=== PATIENT | female | born 1985 | race Caucasian/White ===

== ENCOUNTER → 2016-07-27 | Outpatient (CLI) | payer OTHER ==
--- NOTE | 2016-07-28 02:22 | REP ---
Clinical: Back pain. Disc disease. Technique: AP, lateral views of the lumbar spine . Findings: Alignment and lordosis is maintained. The vertebral bodies including spinous processes are intact and normal. There is no evidence for acute fracture / compression injury or subluxation. No significant degenerative change is noted. Impression: Normal lumbosacral spine radiograph series. Signed by Burt Hager MD 07/28/2016 02:13 A
--- NOTE | 2016-07-28 02:25 | REP ---
Clinical: Neck pain. Technique: AP and lateral views of the cervical spine. Findings: Alignment and lordosis maintained and normal. Vertebral bodies and disc spaces appear normal for age. No acute fracture / compression injury or subluxation. Prevertebral soft tissues and spinous processes are normal. Impression: Age-appropriate cervical spine radiographs. Signed by Burt Hager MD 07/28/2016 02:16 A
--- NOTE | 2016-07-28 02:33 | REP ---
Clinical: thoracic pain. Technique: AP, lateral views. Findings: Alignment and kyphosis is maintained. Vertebral bodies intact. No acute fracture / compression injury or subluxation. No degenerative changes. Paravertebral soft tissues are normal. Impression: Normal thoracic spine series. Signed by Burt Hager MD 07/28/2016 02:25 A
== END ==
LOC: M RAD 11:14
PROVIDERS: ATTEND Chiropractor
DX: M51.37 Other intervertebral disc degeneration, lumbosacral region (principal)

== ENCOUNTER → 2017-08-30 | Outpatient (REF) | payer OTHER | LOC: M LAB REF 09:01 | DX: Z12.4 Encounter for screening for malignant neoplasm of cervix (principal) ==

== ENCOUNTER 2017-11-04 12:50 | Emergency (ER) | payer OTHER ==
[2017-11-04 13:24] LABS: BASO # 0.1 10^3/uL (0.0-0.2); BASO % 0.5 % (0.0-1.0); EOS # 0.1 10^3/uL (0.0-0.50); EOS % 1.4 % (0.0-3.0); HEMOGLOBIN 13.4 g/dl (12.0-15.5); IMMATURE GRANULOCYTE % 0.3 % (0-3.0); LYMPH # 2.1 10^3/uL (1.5-4.5); LYMPH % 21.7 % (24.0-44.0); MEAN CORPUSCULAR HEMOGLOBIN 31.2 pg (27.0-33.0); MEAN CORPUSCULAR HGB CONC 34.4 g/dl (32.0-36.5); MEAN CORPUSCULAR VOLUME 90.7 fl (80.0-96.0); MONO # 0.7 10^3/uL (0.0-0.8); MONO % 7.3 % (0.0-5.0); NEUTROPHILS # 6.6 10^3/uL (1.8-7.7); NEUTROPHILS % 68.8 % (36.0-66.0); PLATELET COUNT, AUTOMATED 258 10^3/uL (150-450); RED CELL DISTRIBUTION WIDTH 11.6 % (11.5-14.5); WHITE BLOOD COUNT 9.5 10^3/uL (4.0-10.0)
[2017-11-04 13:27] LABS: KETONE, URINE AUTO RFX NEGATIVE (NEGATIVE); LEUKOCYTE ESTERASE UR AUTO RFX NEGATIVE (NEGATIVE); NITRITE, URINE AUTO RFX NEGATIVE (NEGATIVE); RBC, URINE AUTO RFX 1 /HPF (0-3); SPECIFIC GRAVITY UR AUTO RFX 1.003 (1.002-1.035); SQUAM EPITHELIAL CELL UR AURFX 1 /HPF (0-6); WBC, URINE AUTO RFX 0 /HPF (0-3)
[2017-11-04 14:15] LABS: ANION GAP 6 MEQ/L (8-16); BLOOD UREA NITROGEN 10 MG/DL (7-18); CALCIUM LEVEL 8.6 MG/DL (8.5-10.1); CARBON DIOXIDE LEVEL 27 MEQ/L (21-32); CHLORIDE LEVEL 105 MEQ/L (98-107); CREATININE FOR GFR 0.68 MG/DL (0.55-1.30); GLOMERULAR FILTRATION RATE > 60.0 (>60); GLUCOSE, FASTING 96 MG/DL (70-100); HCG, SERUM QUANTITATIVE 301 MIU/ML; POTASSIUM SERUM 3.7 MEQ/L (3.5-5.1); SODIUM LEVEL 138 MEQ/L (136-145)
== END 2017-11-04 16:21 | disposition home or self-care (01) ==
LOC: M ED 12:50
DX: O99.89 Other specified diseases and conditions complicating pregnancy, childbirth and the puerperium (principal); N93.9 Abnormal uterine and vaginal bleeding, unspecified; R10.2 Pelvic and perineal pain; R93.8 Abnormal findings on diagnostic imaging of other specified body structures; Z3A.01 Less than 8 weeks gestation of pregnancy
CPT/HCPCS: 76801

== ENCOUNTER → 2017-11-05 | Outpatient (CLI) | payer OTHER ==
[2017-11-05 14:23] LABS: HCG, SERUM QUANTITATIVE 119 MIU/ML
== END ==
LOC: M LAB 13:14
DX: O99.89 Other specified diseases and conditions complicating pregnancy, childbirth and the puerperium (principal); N93.9 Abnormal uterine and vaginal bleeding, unspecified; Z3A.00 Weeks of gestation of pregnancy not specified
CPT/HCPCS: 84702

== ENCOUNTER → 2017-11-12 | Outpatient (CLI) | payer OTHER ==
[2017-11-12 12:37] LABS: HCG, SERUM QUANTITATIVE 2 MIU/ML
== END ==
LOC: M LAB 11:25
DX: O20.0 Threatened abortion (principal); Z3A.00 Weeks of gestation of pregnancy not specified
CPT/HCPCS: 84702

== ENCOUNTER → 2018-04-30 | Outpatient (CLI) | payer OTHER ==
[2018-04-30 11:42] LABS: FREE T4 0.91 NG/DL (0.76-1.46)
[2018-05-02 09:49] LABS: PROGESTERONE 13.1 NG/ML
[2018-05-02 09:49] LABS: FOLLICLE STIMULATING HORMONE 3.6 mIU/mL; PROLACTIN 6.9 NG/ML
== END ==
LOC: M LAB 10:51
DX: N93.8 Other specified abnormal uterine and vaginal bleeding (principal)
CPT/HCPCS: 83001

== ENCOUNTER → 2018-05-07 | Outpatient (CLI) | payer OTHER ==
[2018-05-07 11:09] LABS: HCG, SERUM QUANTITATIVE 79 MIU/ML
== END ==
LOC: M LAB 09:49
DX: N91.2 Amenorrhea, unspecified (principal)
CPT/HCPCS: 84702

== ENCOUNTER → 2018-05-09 | Outpatient (CLI) | payer OTHER ==
[2018-05-09 08:35] LABS: HCG, SERUM QUANTITATIVE 184 MIU/ML
== END ==
LOC: M LAB 07:29
DX: N91.2 Amenorrhea, unspecified (principal)
CPT/HCPCS: 84702

== ENCOUNTER → 2018-06-10 | Outpatient (CLI) | payer OTHER ==
[2018-06-10 18:05] LABS: BASO % 0.3 % (0.0-1.0); EOS # 0.1 10^3/uL (0.0-0.50); EOS % 0.8 % (0.0-3.0); HEMATOCRIT 39.9 % (36.0-47.0); HEMOGLOBIN 13.8 g/dl (12.0-15.5); IMMATURE GRANULOCYTE % 0.3 % (0-3.0); LYMPH # 1.8 10^3/uL (1.5-4.5); LYMPH % 16.9 % (24.0-44.0); MEAN CORPUSCULAR HEMOGLOBIN 30.9 pg (27.0-33.0); MEAN CORPUSCULAR HGB CONC 34.6 g/dl (32.0-36.5); MEAN CORPUSCULAR VOLUME 89.5 fl (80.0-96.0); MONO # 0.7 10^3/uL (0.0-0.8); MONO % 6.3 % (0.0-5.0); NEUTROPHILS % 75.4 % (36.0-66.0); PLATELET COUNT, AUTOMATED 235 10^3/uL (150-450); RED BLOOD COUNT 4.46 10^6/uL (4.00-5.40); RED CELL DISTRIBUTION WIDTH 11.6 % (11.5-14.5); WHITE BLOOD COUNT 10.6 10^3/uL (4.0-10.0)
[2018-06-10 19:43] LABS: CHLAMYDIA DNA AMPLIFICATION NEGATIVE (NEGATIVE); GC DNA AMPLIFICATION NEGATIVE (NEGATIVE)
[2018-06-13 11:16] LABS: HBsAg Prenatal NEGATIVE (NEGATIVE); HIV 1&2 SCREEN CENTAUR NEGATIVE (NEGATIVE); RUBELLA IgG QUALITATIVE IMMUNE (IMMUNE)
[2018-06-13 11:16] LABS: HEPATITIS C VIRUS ABY INDEX 0.1 INDEX (<0.8)
== END ==
LOC: M SMT 14:11
DX: Z36.89 Encounter for other specified antenatal screening (principal)
CPT/HCPCS: 86762

== ENCOUNTER → 2018-08-19 | Outpatient (CLI) | payer OTHER ==
[~2018-08-19] MED LIST: PRENTAB31 PO
--- NOTE | 2018-08-19 14:28 | REP ---
Obstetric ultrasound for anatomy: There is a single intrauterine gestation in a breech presentation. There is motion and cardiac activity. The heart rate is 160 beats per minute. The placenta is anterior / right lateral without previa or abruptio. The placenta is grade zero maturity. The amniotic fluid volume subjectively is normal. The cervix measures 5.3 cm length. Gestational age by the ultrasound today is 19 weeks 1 day with/NERY 01/12/2019. There is no gestational age by the first ultrasound or LMP. weight is 276 grams (0 pounds, 9 ounces). This is the 46 percentile for 19 weeks 1 day. The following anatomic structures are identified and are unremarkable: Intracranial lateral ventricles, choroid plexus, cerebellum, lungs, diaphragm, stomach, cord insertion, three-vessel cord, bladder, and upper lower extremities. Suboptimally demonstrated because of position are: face, upper lip, facial profile, four-chamber heart, cardiac right and left ventricular outflow tracts and kidneys. A followup study dedicated to these structures might be considered. Electronically Signed by Christian Tejeda MD 08/19/2018 02:19 P
== END ==
LOC: M RAD 12:41
PROVIDERS: ATTEND Advanced Practice Midwife
DX: O32.1XX0 Maternal care for breech presentation, not applicable or unspecified (principal); Z36.89 Encounter for other specified antenatal screening; Z3A.19 19 weeks gestation of pregnancy

== ENCOUNTER → 2018-09-09 | Outpatient (CLI) | payer OTHER ==
--- NOTE | 2018-09-09 12:21 | REP ---
OB ULTRASOUND: Real-time sonographic evaluation of the gravid uterus performed. There is a single intrauterine gestation. Estimated gestational age is 22 weeks 1 day, EDC 01/12/2019. Today's measurements indicate appropriate growth. Biometry and Growth: BPD 52 mm = 21 weeks 6 days, 45th percentile HC 193 mm = 21 weeks 3 days, 30th percentile AC 178 mm = 22 weeks 5 days, 62nd percentile FL 37 mm = 21 weeks 4 days, 36th percentile HC/AC ratio 1.08 within normal range. Estimated weight 478 grams, 44th percentile. SEEN/GROSSLY UNREMARKABLE Lateral ventricles Yes Posterior fossa Yes Upper lip Yes Four-chamber heart Yes LVOT Yes RVOT Yes Stomach Yes Cord insertion Yes Three vessel cord Yes Kidneys Yes Bladder Yes Spine Yes Cervical length: Closed and measures 6 cm in length. heart rate: 135 beats per minute. position: Breech. Placenta: Anterior and grade 0 with no previa or abruption. Amniotic fluid: Within normal limits. Electronically Signed by Christian Trinh MD 09/12/2018 11:07 A
== END ==
LOC: M RAD 09:38
PROVIDERS: ATTEND Advanced Practice Midwife
DX: Z34.82 Encounter for supervision of other normal pregnancy, second trimester (principal); Z3A.22 22 weeks gestation of pregnancy

== ENCOUNTER → 2018-10-28 | Outpatient (CLI) | payer OTHER ==
[2018-10-28 13:59] LABS: HEMATOCRIT 32.4 % (36.0-47.0); HEMOGLOBIN 10.8 g/dl (12.0-15.5); MEAN CORPUSCULAR HEMOGLOBIN 30.6 pg (27.0-33.0); MEAN CORPUSCULAR HGB CONC 33.3 g/dl (32.0-36.5); MEAN CORPUSCULAR VOLUME 91.8 fl (80.0-96.0); PLATELET COUNT, AUTOMATED 188 10^3/uL (150-450); RED BLOOD COUNT 3.53 10^6/uL (4.00-5.40); WHITE BLOOD COUNT 9.3 10^3/uL (4.0-10.0)
== END ==
LOC: M SMT 09:07
PROVIDERS: ATTEND Advanced Practice Midwife
DX: O26.892 Other specified pregnancy related conditions, second trimester (principal); Z3A.00 Weeks of gestation of pregnancy not specified

== ENCOUNTER → 2018-12-22 | Outpatient (REF) | payer OTHER | LOC: M LAB REF 17:02 | PROVIDERS: ATTEND Advanced Practice Midwife | DX: Z34.83 Encounter for supervision of other normal pregnancy, third trimester (principal); Z3A.00 Weeks of gestation of pregnancy not specified ==

== ENCOUNTER 2019-01-20 19:25 | Inpatient (IN) | payer OTHER ==
[~2019-01-20] VITALS: Ht 170.2 cm; Wt 104.7 kg
[2019-01-20] VITALS (11 sets, daily range): BP systolic 133–183; BP diastolic 63–84
[2019-01-20] MEDS ORDERED: LACTATED RINGER'S 1000 ML IV STA (19:47)
[2019-01-20] MEDS ORDERED: LR 1,000 ML IV SCH (20:15)
[2019-01-20 20:16] LABS: HEMATOCRIT 35.1 % (36.0-47.0); HEMOGLOBIN 11.8 g/dl (12.0-15.5); MEAN CORPUSCULAR HEMOGLOBIN 29.6 pg (27.0-33.0); MEAN CORPUSCULAR HGB CONC 33.6 g/dl (32.0-36.5); MEAN CORPUSCULAR VOLUME 88.2 fl (80.0-96.0); PLATELET COUNT, AUTOMATED 241 10^3/uL (150-450); RED BLOOD COUNT 3.98 10^6/uL (4.00-5.40)
[2019-01-20] MEDS ORDERED: FENTANYL 2MCG/ML ROPIVACAINE 0.2% IN 0.9% NACL 100ML IVBAG As Ordered ONE (20:51)
--- NOTE | 2019-01-20 21:58 | HPEPDOC ---
Obstetrical History & Physical General Date of Admission Jan 20, 2019 at 19:52 History of Present Illness Chief Complaint: Contractions, term Information Provided By: Patient Age: 33 : 3 Term: 1 Pre-term: 0 Abortions: 1 Livin Care Care: Good Care Dating Final EDC: Jan 16, 2019 Final EDC by: LMP EGA at Admission: 40 (+4) Antepartum Course Height (inches): 67 Pre- weight (lbs.): 190 Admission Weight (lbs.): 230 Past Medical History Past Obstetrical History : Past Obstetrical History: Primgravida (2005) Type of Delivery: Spontaneous Vaginal Del. Sex of Infant: Male (7#14) Complications: No [employer] History: Spontaneous Past Medical History Medical History Noncontributory Surgical History: Other (knee) Family History Significant Family History: Cancer (colon, liver, breast), Diabetes Social History Marital Status: Single Family situation: Spouse/partner home Psychosocial History: No pertinent psych hx * Smoker: former Smoker Alcohol: Denies Drugs: denies Abuse Violence Screening Have you been sexually assault: No Imunizations Tdap status: current Allergies Coded Allergies: Animal Dander (Verified Allergy, Unknown, STUFFY/DRAINAGE, 06/30/06) Medications Scheduled Multivitamins/ ( Forte) 1 Tab Tab, 1 TAB PO DAILY Physical Examination Physical Examination GENERAL: Alert and oriented times three. BREAST: . ABDOMEN: Gravid and non-tender to touch. FETUS: Is vertex (VTX) by sterile vaginal examination (SVE), fetus is vertex (VTX) by Roland. HEART RATE: Regular rate and rhythm. LUNGS: Clear to auscultation (CTA). EXTREMITIES: No edema. No clonus. Deep tendon reflexes (DTRs) + 2. Laboratory Data 24H LABS Laboratory Tests 2 01/20/19 20:09: Nucleated Red Blood Cells % (auto) 0.0 01/20/19 21:04: Serology Scanned Report Hepatitis B Testing CBC/BMP Laboratory Tests 01/20/19 20:09 Red Blood Count 3.98 L, Mean Corpuscular Volume 88.2, Mean Corpuscular Hemoglobin 29.6, Mean Corpuscular Hemoglobin Concent 33.6, Red Cell Distribution Width 13.0 Pertinent Laboratoy Data Blood Type: A+ RBC Antibody Screen: Negative HIV: Negative Hepatitis B: Negative Hepatitis C: Negative Rapid Plasma Reagin: Nonreactive Rubella: Immune Chlamydia/Gonorrhea: Negative Group B Streptococcus: Negative Quad Screen Test: Declined Glucose Tolerance Test: 117 Anatomy Ultrasound Ultrasound Date: Aug 19, 2018 Placenta Location: Anterior Normal Anatomy: Yes Placenta Previa: No Estimated Weight (grams): 276 Other Ultrasounds 06/10/18 dating 9w0d 09/09/18 remainder anatomy complete and normal Steroid Therapy Steroid Therapy: No Vaginal Examination Dilation: 4 cm Effacement: 90% Station: -3 Cervical Consistency: Soft Cervical Position: Posterior Presentation: Cephalic presentation Assessment Heart Rate (FHR): 140 Variability: Moderate Accelerations: Positive Decelerations: None Tocometer Contractions: Yes Frequency: every 2-5 min. Duration: greater than 60 seconds Strength: palpated as moderate Assessment/Plan Assessment Zaida is a 33-year-old (G)3 para (P)1-0-1-1 at 40+4 weeks by 9-week ultrasound. Presents to Labor and Delivery (L&D) with reports of contractions all day, stronger in the last few hours. Denies LOF or bleeding. Fetus is active. Plan Admit and orient. 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 Diet: Clear liquids. Group B Streptococcus (GBS) negative. Labs and intravenous (IV) per unit protocol. Counseled on Pitocin and induction of labor (IOL). Lactated Ringers (LR): Bolus 500 mL, then at 125 mL/hr. Plans an epidural Anticipate normal spontaneous delivery (). C-S as appropriate. Valentine Duncan CNM Jan 20, 2019 21:58
[2019-01-20] MEDS ORDERED: EPIDURAL/PCA KEYS XX PRN (22:45)
[2019-01-20] MEDS ORDERED: ONDANSETRON 4MG/2ML VIAL (J2405) IV PRN (22:45)
[2019-01-20] MEDS ORDERED: ePHEDrine SULFATE 25 MG/5 ML(5MG/ML) SYRINGE IV PRN (22:45)
[2019-01-20] MEDS ORDERED: REFRIGERATOR IV KEYS XX PRN (22:45)
[2019-01-20] MEDS ORDERED: diphenhydrAMINE INJ 50MG/ML VIAL (J1200) IV PRN (22:45)
[2019-01-20] MEDS ORDERED: NALOXONE INJ 0.4 MG/1 ML VIAL (J2310) IV PRN (22:45)
[2019-01-20] MEDS ORDERED: FENTANYL/ROPIVACAINE/NACL BAG 100 ML EPIDURAL SCH (22:45)
[2019-01-20] MEDS ORDERED: LACTATED RINGER'S 1000 ML IV PRN (22:45)
[2019-01-20] MEDS ORDERED: EPIDURAL COMMENT XX SCH (22:45)
[2019-01-20] MEDS ORDERED: OXYTOCIN 30 UNITS IN 0.9% NaCl 500ML IV BAG (J2590) As Ordered ONE (22:46)
[2019-01-20] MEDS ORDERED: OXYTOCIN DRIP 30 UNITS in IV 1 EA IV SCH (23:40)
[2019-01-20] MEDS ORDERED: RHOGAM 300 MCG (1500 IU) INJ (J2790) IM SCH (23:45)
[2019-01-20] MEDS ORDERED: MOM 30ML SUSPENSION UDC PO PRN (23:45)
[2019-01-20] MEDS ORDERED: MEASLES,MUMPS,RUBELLA VACCINE INJ (MMR-II) (90707) SC SCH (23:45)
[2019-01-20] MEDS ORDERED: METHYLERGONOVINE MALEATE 0.2 MG TAB PO PRN (23:45)
[2019-01-20] MEDS ORDERED: ANUSOL HC CREAM 30GM TOP PRN (23:45)
[2019-01-20] MEDS ORDERED: ACETAMINOPHEN TAB 650MG DOSE (2X325MG) PO PRN (23:45)
[2019-01-20] MEDS ORDERED: IBUPROFEN 800 MG TAB PO PRN (23:45)
[2019-01-20] MEDS ORDERED: DOCUSATE SODIUM 100 MG CAP PO PRN (23:45)
[2019-01-20] MEDS ORDERED: IBUPROFEN 600 MG TAB PO PRN (23:45)
[2019-01-20] MEDS ORDERED: DIBUCAINE 1% OINTMENT 30GM TOP PRN (23:45)
--- NOTE | 2019-01-20 23:56 | DNPDOC ---
[facility] Delivery Note Delivery Note DATE OF DELIVERY: January 20, 2019 PREDELIVERY DIAGNOSIS: 40+4/7 weeks' gestation and labor. POST DELIVERY DIAGNOSIS: Delivered. PROCEDURE: Spontaneous vaginal delivery. PROVIDER: Valentine Duncan CNM ANESTHESIA: Epidural. ESTIMATED BLOOD LOSS: 100 mL. FINDINGS: 8 pound 10 ounce, 3910gm male , Score 8/9, no nuchal cord. Compound presentation with Left anterior arm DELIVERY SUMMARY: Patient is a 33-year-old 3 now para 2-0-1-2 who was admitted to labor and delivery for active labor. Spontaneously ruptured membranes 2019, thin meconium staining. Utilized an epidural for labor coping. Fully dilated 2256. Viable male delivered LES, compound with Left anterior arm @ 2319. Spontaneous respirations with stimulation, transitioned on maternal abdomen. Cord doubly clamped and cut by FOB under my direction once pulsations ceased. Apgars 8/9. Placenta malagon, intact with 3v cord @ 2323. Fundus firmed with massage and IV pitocin bolus. EBL 100ml. 1st degree vaginal laceration repaired with 3-0 vicryl rapide. Sponge, sharp and instrument count correct. Parents are naming their son Mina. Valentine Duncan CNM Jan 20, 2019 23:56
[2019-01-21 02:10] VITALS: BP 122/74
[2019-01-21] MEDS: ACETAMINOPHEN 500 MG TAB PO PRN ×2 (02:20→17:28)
[2019-01-21 06:30] VITALS: BP 121/64
--- NOTE | 2019-01-21 07:10 | IPNPDOC ---
Text Note Date of Service The patient was seen on 01/21/19. NOTE Feels well. Adequate pain management. on demand. Voiding VSS, afebrile and normotensive Breasts soft, nipples intact Fundus firm, down 2 FB Lochia rubra light without odor Perineum well approximated without edema PP #1 Routine care. Anticipate D/C in am VS,Fishbone, I+O VS, Fishbone, I+O Laboratory Tests 01/20/19 20:09 Red Blood Count 3.98 L, Mean Corpuscular Volume 88.2, Mean Corpuscular Hemoglobin 29.6, Mean Corpuscular Hemoglobin Concent 33.6, Red Cell Distribution Width 13.0 Vital Signs Date Time Temp Pulse Resp B/P (MAP) Pulse Ox O2 Delivery O2 Flow Rate FiO2 01/21/19 06:30 99.4 71 18 121/64 (83) I&O- Last 24 Hours up to 6 AM 01/21/19 06:00 Intake Total 1800 ml Output Total 1350 ml Balance 450 ml Valentine Duncan CNM Jan 21, 2019 07:10
[2019-01-21] MEDS: PRENATAL VITAMINS CHEWABLE TABLET PO SCH (16:07)
[2019-01-21 18:05] VITALS: BP 132/77
[2019-01-22 06:19] VITALS: BP 142/86
[2019-01-22] MEDS ORDERED: ACET-683 PO (08:46)
[2019-01-22] MEDS ORDERED: IBUP80TA PO (08:46)
[2019-01-22] MEDS: PRENATAL VITAMINS CHEWABLE TABLET PO SCH (10:01)
== END 2019-01-22 16:21 | disposition home or self-care (01) | DRG 560 ==
LOC: M LDO 19:25 → M LDI 19:52 → M OBS 01-21 01:45
PROVIDERS: ADMIT Advanced Practice Midwife; ATTEND Advanced Practice Midwife
PROC: 10E0XZZ Delivery of Products of Conception, External Approach (ICD-10-PCS; principal; 2019-01-20)
PROC: 0HQ9XZZ Repair Perineum Skin, External Approach (ICD-10-PCS; 2019-01-20)
DX: O48.0 Post-term pregnancy (principal); O70.0 First degree perineal laceration during delivery; Z3A.40 40 weeks gestation of pregnancy; O32.6XX0 Maternal care for compound presentation, not applicable or unspecified

== ENCOUNTER → 2020-11-07 | Outpatient (REF) | payer OTHER ==
[~2020-11-07] MED LIST changes: +ACET-683 PO; +IBUP80TA PO
== END ==
LOC: M SFHCWAGY 12:32
PROVIDERS: ATTEND Advanced Practice Midwife
DX: Z12.4 Encounter for screening for malignant neoplasm of cervix (principal)

== ENCOUNTER → 2022-12-17 | Outpatient (CLI) | payer OTHER | LOC: M WHC 08:59 | PROVIDERS: ATTEND Advanced Practice Midwife | DX: N85.2 Hypertrophy of uterus (principal) ==

== ENCOUNTER 2023-06-04 08:46 | Observation (INO) | payer OTHER ==
[~2023-06-04] VITALS: Ht 170.2 cm; Wt 96.1 kg
[~2023-06-04 08:46] MED LIST changes: +KETOROLAC 60MG 2ML VIAL As Ordered ONE; +LIDOCAINE 2% 100MG/5ML SDV (FOR ANES.) As Ordered ONE; +MIDAZOLAM INJ 2MG/2ML VIAL As Ordered ONE; +ONDANSETRON 4MG 2ML VIAL As Ordered ONE; +ROCURONIUM BROMIDE 50MG/5ML VIAL As Ordered ONE; +SUGAMMADEX SODIUM 500 MG/5 ML VIAL (BRIDION) As Ordered ONE; +ceFAZolin SOD 2 GM in IV 1 EA IV ONE; +fentaNYL 100 MCG/2 ML INJECTION As Ordered ONE; +propofoL 200 MG/20 ML VIAL As Ordered ONE
[2023-06-04] MEDS ORDERED: LR 1,000 ML IV SCH ×2 (09:05→14:35)
[2023-06-04 09:43] LABS: HEMATOCRIT 41.5 % (36.0-47.0); HEMOGLOBIN 14.1 g/dl (12.0-15.5); MEAN CORPUSCULAR HEMOGLOBIN 31.2 pg (27.0-33.0); MEAN CORPUSCULAR VOLUME 91.8 fl (80.0-96.0); PLATELET COUNT, AUTOMATED 236 10^3/uL (150-450); RED BLOOD COUNT 4.52 10^6/uL (4.00-5.40); WHITE BLOOD COUNT 5.9 10^3/uL (4.0-10.0)
[2023-06-04] MEDS ORDERED: HYDROmorphone HCL 2MG/ML 1ML VIAL As Ordered ONE (11:16)
[2023-06-04] MEDS ORDERED: ePHEDrine SULFATE 25 MG/5 ML(5MG/ML) SYRINGE As Ordered ONE (11:36)
[2023-06-04] MEDS ORDERED: ONDANSETRON 4MG 2ML VIAL IV PRN ×2 (14:35→15:25)
[2023-06-04] MEDS ORDERED: oxyCODONE 5MG TAB PO PRN (14:35)
[2023-06-04] MEDS ORDERED: fentaNYL 100 MCG/2 ML INJECTION IV PRN (14:35)
[2023-06-04] MEDS ORDERED: ONDANSETRON 4MG 2ML VIAL As Ordered ONE (14:55)
[2023-06-04] MEDS: LR 1,000 ML IV SCH ×4 (15:00→23:25)
[2023-06-04 15:20] VITALS: BP 129/75; TEMP 97.5; O2SAT 94
[2023-06-04] MEDS ORDERED: PERCOCET 5MG/325MG TAB PO PRN (15:25)
[2023-06-04] MEDS ORDERED: IBUP-1022 PO (15:25)
[2023-06-04] MEDS ORDERED: KETOROLAC 30 MG/ML 1ML VIAL IV PRN (15:25)
[2023-06-04] MEDS ORDERED: OXYC1TAB23 PO (15:25)
[2023-06-04 16:17] VITALS: BP 130/78; TEMP 97.5; O2SAT 96
[2023-06-04] MEDS: PERCOCET 5MG/325MG TAB PO PRN (17:10)
[2023-06-04 17:25] VITALS: BP 127/79; TEMP 97.7; O2SAT 95
[2023-06-04 18:21] VITALS: BP 123/74; TEMP 97.9; O2SAT 95
[2023-06-04 20:41] VITALS: BP 114/59; TEMP 97.9; O2SAT 96
[2023-06-04] MEDS: DOCUSATE SODIUM 100MG CAPSULE PO SCH (20:57)
[2023-06-05 02:00] VITALS: BP 105/62; TEMP 98; O2SAT 96
[2023-06-05] MEDS: PERCOCET 5MG/325MG TAB PO PRN ×3 (03:04→13:43)
[2023-06-05 06:34] VITALS: BP 101/67; TEMP 97.9; O2SAT 96
[2023-06-05] MEDS: DOCUSATE SODIUM 100MG CAPSULE PO SCH (08:16)
[2023-06-05 11:59] VITALS: BP 129/79; TEMP 97.9; O2SAT 97
[2023-06-05 13:43] VITALS: BP 129/79; TEMP 97.9; O2SAT 97
== END 2023-06-05 14:30 | disposition home or self-care (01) ==
LOC: M SDC 08:46 → M ED INP 08:47 → M MS5PR 15:35
PROVIDERS: ADMIT Specialist; ATTEND Specialist
DX: D25.9 Leiomyoma of uterus, unspecified (principal); Z87.891 Personal history of nicotine dependence; Z79.899 Other long term (current) drug therapy
CPT/HCPCS: 36415; 58573; 81025; 85027; 86850; 86900; 86901; 88307; 96374; 96375; J0665; J0690; J1100; J1170; J1885; J2250; J2405; J3010; S2900

== ENCOUNTER → 2024-07-07 | Outpatient (CLI) | payer OTHER ==
[~2024-07-07] MED LIST changes: +IBUP-1022 PO; -KETOROLAC 60MG 2ML VIAL As Ordered ONE; -LIDOCAINE 2% 100MG/5ML SDV (FOR ANES.) As Ordered ONE; -MIDAZOLAM INJ 2MG/2ML VIAL As Ordered ONE; -ONDANSETRON 4MG 2ML VIAL As Ordered ONE; +OXYC1TAB23 PO; -ROCURONIUM BROMIDE 50MG/5ML VIAL As Ordered ONE; -SUGAMMADEX SODIUM 500 MG/5 ML VIAL (BRIDION) As Ordered ONE; -ceFAZolin SOD 2 GM in IV 1 EA IV ONE; -fentaNYL 100 MCG/2 ML INJECTION As Ordered ONE; -propofoL 200 MG/20 ML VIAL As Ordered ONE
[2024-07-07 09:35] LABS: BASO % 0.7 % (0.0-1.0); EOS # 0.1 10^3/uL (0.0-0.5); EOS % 2.1 % (0.0-3.0); HEMATOCRIT 42.6 % (36.0-47.0); HEMOGLOBIN 14.6 g/dl (12.0-15.5); LYMPH # 1.8 10^3/uL (1.5-5.0); LYMPH % 30.1 % (24.0-44.0); MEAN CORPUSCULAR HEMOGLOBIN 31.6 pg (27.0-33.0); MEAN CORPUSCULAR HGB CONC 34.3 g/dl (32.0-36.5); MEAN CORPUSCULAR VOLUME 92.2 fl (80.0-96.0); MONO # 0.5 10^3/uL (0.0-0.8); MONO % 7.7 % (2.0-8.0); NEUTROPHILS # 3.4 10^3/uL (1.5-8.5); NEUTROPHILS % 59.2 % (36.0-66.0); PLATELET COUNT, AUTOMATED 256 10^3/uL (150-450); RED BLOOD COUNT 4.62 10^6/uL (4.00-5.40); WHITE BLOOD COUNT 5.8 10^3/uL (4.0-10.0)
[2024-07-07 09:54] LABS: HEMOGLOBIN A1c 5.2 % (4.0-6.0)
[2024-07-07 10:03] LABS: ALBUMIN 4.1 G/DL (3.2-5.2); ALKALINE PHOSPHATASE 59 U/L (35-104); ALT/SGPT 18 U/L (7.0-40); AST/SGOT 9 U/L (<34); BILIRUBIN,TOTAL 0.7 MG/DL (0.3-1.2); BLOOD UREA NITROGEN 22 MG/DL (9-23); CALCIUM LEVEL 9.6 MG/DL (8.5-10.1); CARBON DIOXIDE LEVEL 28 MMOL/L (20-31); CHLORIDE LEVEL 108 MMOL/L (98-107); CHOLESTEROL LEVEL 236 MG/DL (<200); CHOLESTEROL RISK RATIO 4.77 (<5); CREATININE FOR GFR 0.67 MG/DL (0.55-1.30); GLOMERULAR FILTRATION RATE > 60.0 (>60); GLUCOSE, FASTING 101 MG/DL (60-100); HDL CHOLESTEROL 49.4 MG/DL (>40); NON-HDL-C 186.6 MG/DL; POTASSIUM SERUM 4.4 MMOL/L (3.5-5.1); SODIUM LEVEL 141 MMOL/L (136-145); TOTAL PROTEIN 7.3 G/DL (5.7-8.2); TRIGLYCERIDES LEVEL 78 MG/DL (<150)
[2024-07-07 10:05] LABS: FREE T4 1.03 NG/DL (0.89-1.76); THYROID STIMULATING HORMONE 1.452 uIU/ML (0.55-4.78); TOTAL 25(OH) VITAMIN D 21.5 NG/ML (20.0-100.0); VITAMIN B12 LEVEL 595 PG/ML (211-911)
== END ==
LOC: M LAB 08:48
PROVIDERS: ATTEND Nurse Practitioner Family
DX: Z00.00 Encounter for general adult medical examination without abnormal findings (principal); E53.8 Deficiency of other specified B group vitamins; E55.9 Vitamin D deficiency, unspecified; E66.9 Obesity, unspecified; Z83.3 Family history of diabetes mellitus

== ENCOUNTER → 2024-09-25 | Outpatient (CLI) | payer OTHER | LOC: M WUC 12:57 | PROVIDERS: ATTEND Nurse Practitioner Family | DX: M54.2 Cervicalgia (principal) ==

== ENCOUNTER 2024-10-26 08:17 | Outpatient (RCR) | payer OTHER | END 2024-11-01 | LOC: M PT 08:17 | PROVIDERS: ATTEND Nurse Practitioner Family | DX: M51.379 Other intervertebral disc degeneration, lumbosacral region without mention of lumbar back pain or lower extremity pain (principal) ==